=== PATIENT | female | born 1985 | race Caucasian/White ===

== ENCOUNTER 2022-08-07 08:02 | Day surgery (SDC) | payer BC, SELFPAY ==
[2022-08-07] VITALS (9 sets, daily range): BP systolic 96–120; BP diastolic 46–77; PULSE 49–77; RESP 10–18; TEMP 36.6–36.9; O2SAT 99–100
--- NOTE | ~2022-08-07 | CT_ITS ---
EXAMINATION: CT abdomen pelvis w con DATE: 08/07/2022 09:51 INDICATION: Umbilical and right lower quadrant abdominal pain. TECHNIQUE: Computed tomography (CT) of the abdomen and pelvis was performed with 100 mL Omnipaque 350 intravenous contrast. Automated exposure control and iterative reconstruction technique were employe d. The dose-length product was 592.92 mGy-cm. COMPARISON: None. FINDINGS: The visualized portions of the lung bases are clear without pneumonia or pleural effusion. The heart size is normal. No pericardial effusion. The liver, gallbladder, spleen, pancreas, adrenal glands are normal. There is a 4 mm cyst in right kidney. Left kidney is normal. There is an appendico lith in the appendix, which is fluid-filled and dilated to 10 mm. There are no pathologically enlarge d lymph nodes. There is no free intraperitoneal fluid. There is mild lumbar spondylosis. IMPRESSION: 1. Acute appendicitis. Reviewed, dictated and finalized at location A. L RECLAMATION KETTLE TENDER IMPRESSION: 1. Acute appendicitis.
--- NOTE | 2022-08-07 08:35 | ED.GENADULT ---
HPI - General Adult General Chief complaint: Abdominal Pain Stated complaint: abd pain/nausea/vomiting Time Seen by Provider: 08/07/22 08:25 History of Present Illness HPI narrative: This is a 37-year-old female presenting ED with a chief complaint of abdominal pain. The patient says that she was woken from sleep at 5:30 a.m. with a sharp pain near her belly button that radiates to her back. It is burning, 10 out 10 intensity and constant. She has never had pain like this before there are no exacerbating relieving factors. It is associated with nausea vomiting and chills. She denies diarrhea, history of kidney stones. Patient still has her appendix. Last menstrual period was end of June. Related Data Allergies Allergy/AdvReac Type Severity Reaction Status Date / Time No Known Allergies Allergy Verified 08/07/22 08:18 Review of Systems Review of Systems: CONSTITUTIONAL: Denies night sweats. EYES: No eye pain ENT: Denies rhinorrhea CARDIOVASCULAR: Denies palpitations RESPIRATORY: Denies hemoptysis GASTROINTESTINAL: Denies hematemesis GENITOURINARY: Denies hematuria. SKIN: Denies rash MUSCULOSKELETAL: Denies myalgia. NEUROLOGIC: Denies weakness. PSYCHIATRIC: Denies delusions PMFSH Past Medical History Medical History (Updated 08/07/22 @ 10:30 by Jaron Evans MD) Healthy female Social History Social History (Updated 08/07/22 @ 08:37 by Jaron Evans MD) Social History: Patient drinks alcohol occasionally and uses marijuana occasionally, denies tobacco use. Exam Narrative: APPEARANCE: Patient is uncomfortable. Her is at bedside. Head: atraumatic. EYES: EOMI, NOSE: Atraumatic NECK: Trachea midline RESPIRATORY: No increased rate of breathing CARDIOVASCULAR: RRR, ABDOMINAL: Tenderness to palpation in the lower right and lower left quadrants, worse on the right than left. No guarding or rebound. No CVA tenderness. MUSCULOSKELETAl: No obvious deformities NEURO: Alert. Moving 4/4 extremities SKIN:: Warm, dry. Normal color PSYCHIATRIC: Normal affect Course Vital Signs Vital signs: Vital Signs Temperature 97.8 F 08/07/22 08:15 Pulse Rate 77 08/07/22 08:15 Respiratory Rate 18 08/07/22 08:15 Blood Pressure 112/46 L 08/07/22 08:15 Pulse Oximetry 100 08/07/22 08:15 Oxygen Delivery Room Air 08/07/22 08:15 Temperature 97.8 F 08/07/22 08:15 Pulse Rate 77 08/07/22 08:15 Respiratory Rate 18 08/07/22 08:15 Blood Pressure 112/46 L 08/07/22 08:15 Pulse Oximetry 100 08/07/22 08:15 Oxygen Delivery Room Air 08/07/22 08:15 Medical Decision Making MDM Narrative Medical decision making narrative: This is a 37-year-old female presenting ED with chief complaint abdominal pain. Abdominal pain in a female of childbearing age has a broad differential including ectopic , ovarian torsion, kidney stone, appendicitis among others. Patient given 2 L of fluid, Dilaudid/zofran for sxs control., lab work and CT abdomen pelvis have been ordered. Lab work showed a white blood cell count 12.9. CT abdomen pelvis showed acute appendicitis. patient will be started on Zosyn. Surgery consulted. Patient will be taken to the OR. Vital Signs Vital Signs: Vital Signs Temperature 97.8 F 08/07/22 08:15 Pulse Rate 77 08/07/22 08:15 Respiratory Rate 18 08/07/22 08:15 Blood Pressure 112/46 L 08/07/22 08:15 Pulse Oximetry 100 08/07/22 08:15 Oxygen Delivery Room Air 08/07/22 08:15 Temperature 97.8 F 08/07/22 08:15 Pulse Rate 77 08/07/22 08:15 Respiratory Rate 18 08/07/22 08:15 Blood Pressure 112/46 L 08/07/22 08:15 Pulse Oximetry 100 08/07/22 08:15 Oxygen Delivery Room Air 08/07/22 08:15 Lab Data 08/07/22 08:31 08/07/22 08:31 Labs: Lab Results 08/07/22 08/07/22 08/07/22 Range/Units 08:31 08:31 08:45 WBC 14.1 H 12.9 H (4.5-10.0) K/mm3 RBC 4.74
[2022-08-07 08:36] LABS: Basophils Absolute Auto 0.1 K/mm3 (0.0-0.1); Basophils Percent Auto 0.4 % (0.2-1.2); Eosinophils Absolute Auto 0.1 K/mm3 (0-0.3); Eosinophils Percent Auto 0.4 % (0-4.4); Hemoglobin 14.4 g/dL (12.0-15.0); Immature Granulocyte Absolute 0.06 K/mm3 (0.00-0.031); Immature Granulocyte Percent A 0.4 % (0-0.5); Lymphocytes Absolute Auto 1.46 K/mm3 (0.9-3.2); Lymphocytes Percent Auto 10.4 % (18.3-44.2); Mean Corpuscular HGB Conc 34.3 g/dl (32-36); Mean Corpuscular Hemoglobin 30.4 pg (26-34); Mean Corpuscular Volume 88.6 fl (80-100); Mean Platelet Volume 11.6 fl (7.4-10.4); Monocytes Absolute Auto 0.8 K/mm3 (0.1-0.6); Monocytes Percent Auto 5.3 % (2.6-8.5); Neutrophils Absolute Auto 11.7 K/mm3 (1.3-6.7); Neutrophils Percent Auto 83.1 % (45.5-73.1); Platelet Count Result 165 k/mm3 (150-375); Red Blood Count 4.74 M/mm3 (4.2-5.4); Red Cell Distribution Width 12.5 % (11.5-14.5); White Blood Count 14.1 K/mm3 (4.5-10.0)
[2022-08-07 08:47] LABS: Alanine Aminotransferase 14 U/L (6-35); Albumin Level 4.7 g/dL (3.5-5.1); Alkaline Phosphatase 66 U/L (38-126); Anion Gap 8 mmol/L (8-16); Aspartate Amino Transferase 25 U/L (14-36); Bilirubin,Total 0.8 mg/dL (0.2-1.3); Blood Urea Nitrogen 12 mg/dL (7-17); Calcium 9.4 mg/dL (8.4-10.2); Carbon Dioxide 27 mmol/L (22-30); Chloride 104 mmol/L (98-107); Estimated CRCL calculation 105 ml/min; Estimated Glomerular Filt Rate > 60; Glucose 118 mg/dL (65-110); Lipase 28 U/L (23-300); Potassium 3.7 mmol/L (3.4-5.0); Sodium 139 mmol/L (137-145)
[2022-08-07] MEDS: SODIUM CHLORIDE 0.9% IV 2,000 ML 999 ML IV CONT (08:48)
[2022-08-07] MEDS: HYDROmorphone HCL INJ (*CRX) 1 MG/ML SYR IV PUSH (08:48)
[2022-08-07] MEDS: ONDANSETRON INJ 4 MG/2 ML VIAL 8 MG IV PUSH (08:49)
[2022-08-07 08:56] LABS: Basophils Absolute Auto 0.1 K/mm3 (0.0-0.1); Basophils Percent Auto 0.4 % (0.2-1.2); Eosinophils Absolute Auto 0.1 K/mm3 (0-0.3); Eosinophils Percent Auto 0.5 % (0-4.4); Hematocrit 41.1 % (37.0-47.0); Immature Granulocyte Absolute 0.05 K/mm3 (0.00-0.031); Immature Granulocyte Percent A 0.4 % (0-0.5); Lymphocytes Percent Auto 10.9 % (18.3-44.2); Mean Corpuscular HGB Conc 34.1 g/dl (32-36); Mean Corpuscular Hemoglobin 30.2 pg (26-34); Mean Corpuscular Volume 88.6 fl (80-100); Mean Platelet Volume 11.3 fl (7.4-10.4); Monocytes Absolute Auto 0.7 K/mm3 (0.1-0.6); Monocytes Percent Auto 5.1 % (2.6-8.5); Neutrophils Absolute Auto 10.7 K/mm3 (1.3-6.7); Neutrophils Percent Auto 82.7 % (45.5-73.1); Platelet Count Result 166 k/mm3 (150-375); Red Blood Count 4.64 M/mm3 (4.2-5.4); Red Cell Distribution Width 12.6 % (11.5-14.5); White Blood Count 12.9 K/mm3 (4.5-10.0)
[2022-08-07 09:10] LABS: Prothrombin Time 13.1 Seconds (11.1-14.7)
[2022-08-07 09:11] LABS: Alanine Aminotransferase 13 U/L (6-35); Albumin Level 4.7 g/dL (3.5-5.1); Alkaline Phosphatase 63 U/L (38-126); Anion Gap 7 mmol/L (8-16); Aspartate Amino Transferase 21 U/L (14-36); Bilirubin,Total 0.8 mg/dL (0.2-1.3); Blood Urea Nitrogen 12 mg/dL (7-17); Calcium 9.3 mg/dL (8.4-10.2); Carbon Dioxide 26 mmol/L (22-30); Chloride 101 mmol/L (98-107); Estimated CRCL calculation 105 ml/min; Estimated Glomerular Filt Rate > 60; Glucose 119 mg/dL (65-110); Lipase 26 U/L (23-300); Magnesium 1.9 mg/dL (1.6-2.3); Partial Thromboplastin Time 28.4 SECONDS (22.3-36.8); Potassium 3.9 mmol/L (3.4-5.0); Sodium 134 mmol/L (137-145)
[2022-08-07 09:13] LABS: Glucose Point of Care 111 mg/dl (65-105)
[2022-08-07 09:22] LABS: Add Urine Microscopic? YES; Appearance Urine Clear (Clear); Bilirubin Urine Negative (Negative); Blood Urine Negative (Negative); Color Urine Yellow (Yellow); Glucose Urine UA Negative (Negative); Ketones Urine Negative (Negative); Leukocyte Esterase Ur Trace LEU/UL (Negative); Nitrate Urine Positive (Negative); Protein Urine 1+ mg/dL (Negative); Urobilinogen Urine 0.2 mg/dL (<2.0); pH Urine >=9.0 (5.0-9.0)
[2022-08-07 09:27] LABS: Bacteria Urine Trace /hpf; Mucus Urine Rare /lpf; RBC Urine 0-2 /hpf (0-2); Squamous Epithelial Cell Urine Many /hpf (Few); WBC Urine 0-3 /hpf
--- NOTE | 2022-08-07 10:30 | PM.SD2 ---
Same Day Admit/Disch: HPI History of Present Illness Chief complaint: Appendicitis Narrative: Caridad Rahman is a 37 year old female who awakened about the 530 this morning with sharp pain in the umbilical area. This was a burning pain and subsequently moved to the right lower quadrant. She came to the emergency room. She was noted to have right lower quadrant tenderness. [place] [address]. CT scan of the abdomen pelvis shows appendicitis with appendicoliths. She is taken to surgery now as an outpatient for laparoscopic appendectomy for acute appendicitis. She is otherwise healthy. [facility] Past Medical History Medical History Healthy female Social History Social History Social History: Patient drinks alcohol occasionally and uses marijuana occasionally, denies tobacco use. Same Day Admit/Disch: Med Pre-admit Medications Home Medications Medication Instructions Recorded Confirmed Type hydrocodone 5 mg-acetaminophen 325 1 - 2 tablet PO Q6H PRN pain #7 08/07/22 Rx mg tablet tabs ketorolac 10 mg tablet 10 mg PO Q6H 4 days #16 tabs 08/07/22 Rx Exam Const: General: cooperative, healthy appearing, comfortable, no acute distress, alert, awake and thin HENMT: Head: normocephalic and atraumatic Mouth: Yes Normal oral and palatal mucosa present Eyes: Conjunctivae: conjunctivae normal Pupils: Equal, round and reactive pupils present EOM: EOMs intact bilaterally Neck: Neck: normal visual inspection, no lymphadenopathy and nontender Resp: Effort & Inspection: normal respiratory effort Auscultation: clear to auscultation bilaterally Cardio: Rate: regular rate Rhythm: regular rhythm Heart sounds: no gallops, no murmurs and no rubs GI: Inspection: normal to inspection, non-distended, scaphoid and no scars GI Palp: Yes Soft to palpation, Yes Tenderness to palpation present (GI) ( right lower quadrant with guarding), Yes Guarding due to palpation present (GI), No Hepatomegaly present, No Splenomegaly present, No Hernia present and No Palpable mass present Auscultation: normal bowel sounds Skin: Lesions: no lesions Rashes: no rashes Neuro: General: no focal motor deficits and CN's II-XI intact bilaterally Cranial nerves: Yes Equal, round and reactive pupils present, Yes Bilaterally intact EOM present, Yes facial symmetry and Yes Midline tongue present Speech: normal speech Motor exam (neuro): 5/5 motor strength present throughout and Motor abnormalities not present Extrem: General: no clubbing, cyanosis or edema and edema Psych: Affect: normal affect Thought process: Normal thought process present Insight: Good insight present (Psych) DS: Data Data Completed and Pending Labs on day of discharge: Labs from last 24 hours 08/07/22 08/07/22 08/07/22 09:14 09:00 08:45 WBC RBC Hgb Hct MCV MCH MCHC RDW Plt Count MPV Immature Gran % (Auto) Neut % (Auto) Lymph % (Auto) [place] % (Auto) Eos % (Auto) Baso % (Auto) Lymph # (Auto) [place] # (Auto) Eos # (Auto) Baso # (Auto) Abs Immat Gran (auto) Absolute Neuts (auto) Absolute Nucleated RBC Nucleated RBC % PT INR APTT Sodium Potassium Chloride Carbon Dioxide Anion Gap BUN Creatinine Estim Creat Clear Calc Estimated GFR Glucose POC Capillary Glucose 111 H Calcium Magnesium 1.9 Total Bilirubin AST ALT Alkaline Phosphatase Total Protein Albumin Lipase Urine Color Yellow Urine Appearance Clear Urine pH >=9.0 H Ur Specific [place] 1.010 Urine Protein 1+ H Urine Glucose (UA) Negative Urine Ketones Negative Ur Blood (Man) Negative Urine Nitrate Positive H Urine Bilirubin Negative Urine Urobilinogen 0.2 Leukocyte Esterase Rfl Trace H Urin
--- NOTE | 2022-08-07 10:49 | WPDANESEFPP ---
Anes - Eval Final PreProcedure Day of Procedure 08/07/22 10:49 Heart: regular rate and rhythm Lungs: clear to auscultation and normal air movement Airway: Mallampati scale class 1 Neurological: alert and oriented Last oral intake: >/= 8 hours ASA classification: I Emergent: yes Anesthetic plan: proceed Anesthesia type and monitoring: general and standard monitoring Results Review: All pre-operative results and documents have been reviewed as part of the pre-operative evaluation. Informed Consent: The patient's anesthetic plan and its attendant risks and benefits were discussed with the patient/family/POA. Questions were solicited and answers provided to the satisfaction of the patient/family/POA.
--- NOTE | 2022-08-07 11:06 | WPDANESEPPF ---
Anes - Initial Pre Proc Eval Procedure: Operation Date: 08/07/22 11:30 Proposed Procedures p Laparoscopic Appendectomy - Keith Rodríguez MD Date/Time: 08/07/22 11:06 Surgeon: Keith Rodríguez MD Pre Op Diagnosis: Appendicitis Patient Data Age: 37 Gender: F Height: 1.78 m Weight: 77.2 kg Last Vital Signs Temp 36.6 C 08/07/22 08:15 Pulse 64 08/07/22 10:27 Resp 17 08/07/22 10:27 BP 120/56 L 08/07/22 10:27 Pulse Ox 100 08/07/22 10:27 O2 Del Method Room Air 08/07/22 08:15 Allergies Allergy/AdvReac Type Severity Reaction Status Date / Time No Known Allergies Allergy Verified 08/07/22 08:18 Laboratory Tests 08/07/22 08/07/22 08/07/22 08:31 08:31 08:45 WBC 14.1 K/mm3 H K/mm3 12.9 K/mm3 H K/mm3 (4.5-10.0) (4.5-10.0) RBC 4.74 M/mm3 M/mm3 4.64 M/mm3 M/mm3 (4.2-5.4) (4.2-5.4) Hgb 14.4 g/dL g/dL 14.0 g/dL g/dL (12.0-15.0) (12.0-15.0) Hct 42.0 % % 41.1 % % (37.0-47.0) (37.0-47.0) MCV 88.6 fl fl 88.6 fl fl (80-100) (80-100) MCH 30.4 pg pg 30.2 pg pg (26-34) (26-34) MCHC 34.3 g/dl g/dl 34.1 g/dl g/dl (32-36) (32-36) RDW 12.5 % % 12.6 % % (11.5-14.5) (11.5-14.5) Plt Count 165 k/mm3 k/mm3 166 k/mm3 k/mm3 (150-375) (150-375) MPV 11.6 fl H fl 11.3 fl H fl (7.4-10.4) (7.4-10.4) Immature Gran % (Auto) 0.4 % % 0.4 % % (0-0.5) (0-0.5) Neut % (Auto) 83.1 % H % 82.7 % H % (45.5-73.1) (45.5-73.1) Lymph % (Auto) 10.4 % L % 10.9 % L % (18.3-44.2) (18.3-44.2) [place] % (Auto) 5.3 % % 5.1 % % (2.6-8.5) (2.6-8.5) Eos % (Auto) 0.4 % % 0.5 % % (0-4.4) (0-4.4) Baso % (Auto) 0.4 % % 0.4 % % (0.2-1.2) (0.2-1.2) Lymph # (Auto) 1.46 K/mm3 K/mm3 1.40 K/mm3 K/mm3 (0.9-3.2) (0.9-3.2) [place] # (Auto) 0.8 K/mm3 H K/mm3 0.7 K/mm3 H K/mm3 (0.1-0.6) (0.1-0.6) Eos # (Auto) 0.1 K/mm3 K/mm3 0.1 K/mm3 K/mm3 (0-0.3) (0-0.3) Baso # (Auto) 0.1 K/mm3 K/mm3 0.1 K/mm3 K/mm3 (0.0-0.1) (0.0-0.1) Abs Immat Gran (auto) 0.06 K/mm3 H K/mm3 0.05 K/mm3 H K/mm3 (0.00-0.031) (0.00-0.031) Absolute Neuts (auto) 11.7 K/mm3 H K/mm3 10.7 K/mm3 H K/mm3 (1.3-6.7) (1.3-6.7) Absolute Nucleated RBC 0.0 K/mm3 K/mm3 0.0 K/mm3 K/mm3 (0.0-0.012) (0.0-0.012) Nucleated RBC % 0.0 % % 0.0 % % (0.0-0.2) (0.0-0.2) PT INR APTT Sodium 139 mmol/L mmol/L (137-145) Potassium 3.7 mmol/L mmol/L (3.4-5.0) Chloride 104 mmol/L mmol/L (98-107) Carbon Dioxide 27 mmol/L mmol/L (22-30) Anion Gap 8 mmol/L mmol/L (8-16) BUN 12 mg/dL mg/dL (7-17) Creatinine 0.70 mg/dL mg/dL (0.7-1.0) Estim Creat Clear Calc 105 ml/min ml/min Estimated GFR > 60 (59 - ) Glucose 118 mg/dL H mg/dL (65-110) POC Capillary Glucose Calcium 9.4 mg/dL mg/dL (8.4-10.2) Magnesium Total Bilirubin 0.8 mg/dL mg/dL (0.2-1.3) AST 25 U/L U/L (14-36) ALT 14 U/L U/L (6-35) Alkaline Phosphatase 66 U/L U/L (38-126) Total Protein 8.0 g/dL g/dL (6.3-8.2) Albumin 4.7 g/dL g/dL (3.5-5.1) Lipase 28 U/L U/L (23-300) Urine Color Urine Appearance Urine pH Ur Specific [place] Urine Protein Urine Glucose (UA) Urine Ketones Ur Blood (Man) Urine Nitrate Urine Bilirubin Urine Urobilinogen Leukocyte Esterase Rfl Urine RBC Urine WBC Ur Squamous Epith Cells Urine Bacteria Urine Mucus 08/07/22 08/07/22 08/07/22 08:45 08:45 08:45 WBC RBC Hgb Hct
--- NOTE | 2022-08-07 11:14 | WPDHPUPDATE1 ---
History and Physical Update Update Date/Time: 08/07/22 11:14 History and Physical has been reviewed, including an updated exam of the patient. There are NO changes in the patient's condition. Risks, benefits, and alternatives have been discussed and questions answered. Patient agrees to proceed with procedure.
--- NOTE | 2022-08-07 11:34 | P.OP_ITS ---
Procedure Note - Detailed Date of Procedure 08/07/22 Pre-op Diagnosis Appendicitis Post-op Diagnosis Same Procedure Performed Laparoscopic appendectomy Surgeon Keith Rodríguez MD Agricultural Sciences Professor Fatimah SMITH Anesthesia General and Local (0.5% Marcaine with epinephrine) Indications Patient had umbilical pain that moved to the right lower quadrant. She had peritoneal signs and leukocytosis. CT scan showed acute appendicitis. She is taken to surgery now for laparoscopic appendectomy Findings Acute non perforated appendicitis Description of Procedure Patient was taken to surgery and induced into general anesthesia. The abdomen is prepped and draped. Trocars were placed in the usual fashion using [employer] optical trocars and a 5 mm camera. Patient was placed in Trendelenburg with the right-side elevated. Appendix was located and dissected free from inflammatory adhesions. Dissection was carried out in the mesoappendix. The appendiceal artery was thoroughly cauterized and divided. The appendix was further dissected and was skeletonized at its base. Base of the appendix was ligated with a Vicryl endoloop. The appendix was amputated just above the ligature. The mucosa of the appendiceal stump was cauterized. The appendix was placed immediately in an Endo-Catch bag. It was retrieved through the 10 11 left lower quadrant trocar site. We then replaced the trocar and reviewed the areas of dissection and the appendiceal stump. All looked good with no evidence of bleeding or other issues. We evacuated CO2 and removed the trocar sleeves. Skin wounds were closed with subcuticular 4-0 Monocryl skin suture. The wounds were dressed with Exofin surgical adhesive. Patient was awakened and taken to recovery in good condition. Sponge needle counts were correct x2. Estimated Blood Loss -5 Packing No Pathology Yes (Appendix) Complications No immediate complications Condition Stable Disposition PACU [facility] Billing Surgery - Charge Forward: Surgery Billing (Laparoscopic appendectomy)
[2022-08-07] MEDS: BUPIVACAINE/EPINEPHRINE 0.5% 30 ML VIAL INFILTRATE (12:01)
[2022-08-07] MEDS: LACTATED RINGERS 1,000 ML 30 ML IV CONT (12:10)
[2022-08-07] MEDS: HYDROmorphone HCL INJ (*CRX) 1 MG/ML SYR 0.5 MG IV PUSH ×2 (12:17→12:24)
[2022-08-07] MEDS: SCOPOLAMINE 1.5 MG PATCH TRANSDERM (12:19)
[2022-08-07] MEDS: oxyCODONE HCL (*CRX) 5 MG TAB IR PO (13:15)
== END 2022-08-07 13:50 | disposition home or self-care (01) ==
LOC: ANHED 10:30 → ANHSURGERY 10:33
PROVIDERS: Emergency Provider Emergency Medicine; Visit Provider Surgery
PROC: 0DTJ4ZZ Resection of Appendix, Percutaneous Endoscopic Approach (ICD-10-PCS; CPT 44970; principal; 2022-08-07 11:30)
DX: K35.80 Unspecified acute appendicitis (principal)
CPT/HCPCS: 44970; 36415; 74177; 80053; 81001; 81025; 82948; 83690; 83735; 85025; 85610; 85730; 88304; A9270; J0131; J1100; J1170; J2250; J2405; J2543; J2704; J2710; J3010; J7030; J7120; Q9967

== ENCOUNTER 2023-08-01 09:09 | Emergency (ER) | payer BC, SELFPAY ==
[2023-08-01] VITALS (12 sets, daily range): BP systolic 98–111; BP diastolic 63–85; PULSE 75–113; RESP 13–24; TEMP 36.8; O2SAT 96–100
--- NOTE | ~2023-08-01 | XR_ITS ---
XR chest 2V DATE: 08/01/2023 10:23 INDICATION: Nausea, vomiting TECHNIQUE: PA and lateral views COMPARISON: None FINDINGS: Normal heart size. No hilar or mediastinal enlargement. No pulmonary infiltrate or consolidation, pleural effusion or pulmonary vascular congestion or pneumo thorax. Included skeletal structures are unremarkable. IMPRESSION: No active cardiopulmonary disease Reviewed, dictated and finalized at location A. ER PLANER
--- NOTE | ~2023-08-01 | CT_ITS ---
EXAMINATION: CT abdomen pelvis w con DATE: 08/01/2023 11:31 INDICATION: Generalized abdominal pain. Nausea, vomiting, diarrhea. TECHNIQUE: Computed tomography (CT) of the abdomen and pelvis was performed with 100 CC Omnipaque 350 intravenous contrast. Automated exposure control and iterative reconstruction technique were employe d. Exam dose: 649.15 mGy-cm total exam DLP. COMPARISON: 08/07/2022 CT abdomen pelvis FINDINGS: The lung bases are clear. Normal heart size. No pericardial or pleural effusion. The liver, gallbladder, bile ducts, spleen, pancreas and pancreatic duct. Normal morphology of the adrenal glands. No renal mass lesion or urinary tract calculus or hydroureteronephrosis is detected. Mild diffuse thickening of the urinary bladder wall; cystitis is not excluded. Clinical correlation i s advised. There is some thickening of the wall of the colon and fluid as well as fluid levels of the colon, sug gesting colitis, which may be infectious, or inflammatory. There is no evidence of vascular compromis e of the mesenteric arteries or diminished enhancement of the colon wall and suggested he ischemic et iology for the findings. There is no evidence of appendix. No bowel obstruction or intraperitoneal free air. Small fat-containing umbilical hernia. No intraperitoneal or retroperitoneal or pelvic mass lesion or adenopathy or ascites. Some fluid in the endometrial cavity of uterus. The uterus and adnexal areas otherwise are unremarkab le. IMPRESSION: Thickening of the wall of the colon and fluid within the colon, suggesting infectious or inflammatory colitis Status post appendectomy Mild diffuse thickening of the urinary bladder wall; cystitis is not excluded. Recommend clinical cor relation Reviewed, dictated and finalized at Location [facility]. Reviewed, dictated and finalized at location A. RESSOR MECHANIC IMPRESSION: Thickening of the wall of the colon and fluid within the colon, ac ggesting infectious or inflammatory colitis Status post appendectomy Mild diffuse thickening of the urinary bladder wall; cystitis is not excluded. Recommend clinical correlation
--- NOTE | 2023-08-01 09:51 | ECG_ITS ---
Measurements Intervals [place] Rate: 70 P: -17 [place]: 134 QRS: 96 QRSD: 94 T: 14 QT: 407 QTc: 441 Interpretive Statements SINUS RHYTHM BORDERLINE RIGHT AXIS DEVIATION [QRS AXIS > 90] NONSPECIFIC ST & T-WAVE ABNORMALITY NO PREVIOUS ECG AVAILABLE FOR COMPARISON Electronically Signed On 08-01-2023 13:54:09 INSTRUMENTATION AND CONTROLS DESIGNER by Ashley Espinal M.D.
--- NOTE | 2023-08-01 09:52 | ED.NAVMDI ---
HPI - Nausea/Vomiting/Diarrhea General Chief complaint: Nausea/Vomiting/Diarrhea Stated complaint: n/v/d Time Seen by Provider: 08/01/23 09:27 History of Present Illness HPI Narrative: 38-year-old female who is s/p appendectomy reports for evaluation for nausea, vomiting, diarrhea and generalized abdominal pain. Patient states 3 days ago she began having multiple episodes of watery diarrhea per day which has persisted to today. States she developed associated nausea and vomiting yesterday. She is also reporting a cough intermittently that is productive for the past 2 weeks. States she had a fever of 102 yesterday. LMP approximately 1 month ago. She denies blood or mucus in her stool, otalgia, sore throat, dysuria or hematuria. Denies recent travel or antibiotic use. Related Data Allergies Allergy/AdvReac Type Severity Reaction Status Date / Time No Known Allergies Allergy Verified 08/01/23 09:49 Review of Systems Review of Systems: CONSTITUTIONAL: Denies fever, chills, or sweats. EYES: Denies visual changes, redness, or discharge. ENT: Denies rhinorrhea, congestion, sore throat, or otalgia. CARDIOVASCULAR: Denies chest pain, palpitations, or edema. RESPIRATORY: See HPI GASTROINTESTINAL: See HPI GENITOURINARY: Denies dysuria or hematuria. SKIN: Denies rash or itching. MUSCULOSKELETAL: Denies back pain, joint pain, or myalgia. NEUROLOGIC: Denies headache, numbness, or weakness. PSYCHIATRIC: Denies anxiety or depression. [facility] Past Medical History Medical History Healthy female Surgical History Surgical History S/P laparoscopic appendectomy 08/07/22 Social History Social History Social History: Patient drinks alcohol occasionally and uses marijuana occasionally, denies tobacco use. Smoking status: Never smoker Exam Narrative: GENERAL: Ill-appearing, dry heaving on exam HEAD: Normocephalic, atraumatic. EYES: PERRLA and EOMI. ENT: Nares clear, no rhinorrhea or epistaxis. Mucous membranes moist. Posterior pharynx without erythema or edema. No tonsillar hypertrophy. Uvula midline. Bilateral TMs are yu non-bulging. Normal canals. NECK: Supple. CHEST: Clear to auscultation. No respiratory distress. HEART: Regular rate and rhythm. No murmur heard. Normal peripheral pulses. ABDOMEN: Normoactive bowel sounds. Generalized abdominal tenderness without rebound, guarding or rigidity. No CVA tenderness. EXTREMITIES: Normal range of motion. No edema. SKIN: Warm, dry, no rash. NEURO: No focal deficits. Alert and oriented x3 Course Vital Signs Vital signs: Vital Signs Temperature 98.3 F 08/01/23 09:15 Pulse Rate 113 H 08/01/23 09:15 Respiratory Rate 20 08/01/23 09:15 Blood Pressure 100/73 08/01/23 09:15 Pulse Oximetry 96 08/01/23 09:15 Oxygen Delivery Room Air 08/01/23 09:15 Temperature 98.3 F 08/01/23 09:15 Pulse Rate 92 08/01/23 15:15 Respiratory Rate 24 H 08/01/23 15:15 Blood Pressure 101/65 08/01/23 14:16 Pulse Oximetry 98 08/01/23 15:15 Oxygen Delivery Room Air 08/01/23 09:15 MDM - Nausea/Vomiting/Diarrhea MDM Narrative Medical decision making narrative: 38-year-old female reports for evaluation for nausea, vomiting and diarrhea. See HPI for further history. Vitals significant for tachycardia 113, otherwise unremarkable. She is afebrile. Exam is significant for the above. Lab significant for leukocytosis of 11.6, platelets of 106. Platelets a year ago were 166. Chemistries significant for sodium of 134, potassium of 3. Potassium orally repleted. Repeat BMP shows a corrected potassium of 3.6. Lactic acid is normal 1.2. LFTs unremarkable. Urinalysis with 3+ ketones, no UTI. COVID and RSV are negative. Flu B is positive. EKG shows nonspecific ST and T wave abnormali
[2023-08-01 09:56] LABS: Basophils Percent Auto 0.2 % (0.2-1.2); Hematocrit 42.5 % (37.0-47.0); Hemoglobin 14.7 g/dL (12.0-15.0); Immature Granulocyte Absolute 0.04 K/mm3 (0.00-0.031); Immature Granulocyte Percent A 0.3 % (0-0.5); Immature Platelet Fraction Pct 9.9 % (0.9-11.2); Lymphocytes Absolute Auto 1.13 K/mm3 (0.9-3.2); Lymphocytes Percent Auto 9.7 % (18.3-44.2); Mean Corpuscular HGB Conc 34.6 g/dl (32-36); Mean Corpuscular Hemoglobin 29.9 pg (26-34); Mean Corpuscular Volume 86.4 fl (80-100); Mean Platelet Volume 12.1 fl (7.4-10.4); Monocytes Absolute Auto 0.4 K/mm3 (0.1-0.6); Monocytes Percent Auto 3.2 % (2.6-8.5); Neutrophils Absolute Auto 10.1 K/mm3 (1.3-6.7); Neutrophils Percent Auto 86.6 % (45.5-73.1); Platelet Count Result 106 k/mm3 (150-375); Red Blood Count 4.92 M/mm3 (4.2-5.4); Red Cell Distribution Width 12.2 % (11.5-14.5); White Blood Count 11.6 K/mm3 (4.5-10.0)
[2023-08-01] MEDS: SODIUM CHLORIDE 0.9% IV 1,000 ML 999 ML IV CONT ×3 (09:56→14:24)
[2023-08-01] MEDS: ONDANSETRON INJ 4 MG/2 ML VIAL IV PUSH ×2 (09:57→10:56)
[2023-08-01 10:14] LABS: Alanine Aminotransferase 12 U/L (6-35); Albumin Level 4.5 g/dL (3.5-5.1); Alkaline Phosphatase 64 U/L (38-126); Anion Gap 13 mmol/L (8-16); Aspartate Amino Transferase 23 U/L (14-36); Bilirubin,Total 0.8 mg/dL (0.2-1.3); Blood Urea Nitrogen 13 mg/dL (7-17); Calcium 9.6 mg/dL (8.4-10.2); Carbon Dioxide 23 mmol/L (22-30); Chloride 98 mmol/L (98-107); Estimated CRCL calculation 92 ml/min; Estimated Glomerular Filt Rate > 60; Glucose 131 mg/dL (65-110); Lipase 42 U/L (23-300); Sodium 134 mmol/L (137-145)
[2023-08-01 10:23] LABS: Influenza A QL RT-PCR Negative (Negative); Influenza B QL RT-PCR Positive (Negative); RSV RNA, RT-PCR Negative (Negative); SARS-CoV-2 RNA PCR Negative (Negative)
[2023-08-01 10:24] LABS: Lactic Acid Reflex 1.2 mmol/L (0.7-2.0)
[2023-08-01] MEDS: POTASSIUM CHLORIDE 20 MEQ PACKET (FOR LIQUID) 40 MEQ PO (10:40)
[2023-08-01 11:19] LABS: Appearance Urine Clear (Clear); Bilirubin Urine Negative (Negative); Blood Urine Negative (Negative); Color Urine Yellow (Yellow); Glucose Urine UA Negative (Negative); Ketones Urine 3+ mg/dL (Negative); Leukocyte Esterase Ur Negative LEU/UL (Negative); Nitrate Urine Negative (Negative); Protein Urine Negative (Negative); Specific Grav Ur 1.013 (1.001-1.035); Urobilinogen Urine 0.2 mg/dL (<2.0)
[2023-08-01 11:35] LABS: Add Urine Microscopic? NO
--- NOTE | 2023-08-01 12:24 | ECG_ITS ---
Measurements Intervals [place] Rate: 75 P: -13 [place]: 112 QRS: 91 QRSD: 88 T: 16 QT: 390 QTc: 436 Interpretive Statements SINUS RHYTHM WITH SHORT [place] INTERVAL BORDERLINE RIGHT AXIS DEVIATION [QRS AXIS > 90] NONSPECIFIC ST & T-WAVE ABNORMALITY COMPARED TO ECG 08/01/2023 10:02:20 NO SIGNIFICANT CHANGES Electronically Signed On 08-01-2023 13:57:15 MANAGER INVENTORY by Ashley Espinal M.D.
[2023-08-01] MEDS: METOCLOPRAMIDE HCL 10 MG TABLET PO (12:34)
[2023-08-01 13:27] LABS: Troponin I < 0.012 ng/mL (0.000-0.034)
[2023-08-01 13:30] LABS: Toxigenic C. Diff NEGATIVE (NEGATIVE)
[2023-08-01 14:17] LABS: Anion Gap 9 mmol/L (8-16); Blood Urea Nitrogen 10 mg/dL (7-17); Calcium 8.6 mg/dL (8.4-10.2); Carbon Dioxide 22 mmol/L (22-30); Chloride 103 mmol/L (98-107); Estimated CRCL calculation 104 ml/min; Estimated Glomerular Filt Rate > 60; Glucose 110 mg/dL (65-110); Potassium 3.6 mmol/L (3.4-5.0); Sodium 134 mmol/L (137-145)
== END 2023-08-01 16:07 | disposition home or self-care (01) ==
PROVIDERS: Emergency Medicine; Emergency Provider Physician Assistant
DX: K52.9 Noninfective gastroenteritis and colitis, unspecified (principal); J10.1 Influenza due to other identified influenza virus with other respiratory manifestations; E87.6 Hypokalemia; D69.6 Thrombocytopenia, unspecified; Z20.822 Contact with and (suspected) exposure to COVID-19
CPT/HCPCS: 36415; 71046; 74177; 80048; 80053; 81003; 81025; 83605; 83690; 84484; 85025; 85055; 87045; 87077; 87186; 87427; 87449; 87493; 87637; 89055; 93005; 96361; 96374; 96376; 99284; A9270; J2405; J7030; Q9967

== ENCOUNTER 2024-12-17 12:35 | Outpatient (CLI) | payer BC, SELFPAY ==
[2024-12-17 13:56] LABS: Basophils Absolute Auto 0.1 K/mm3 (0.0-0.1); Basophils Percent Auto 0.8 % (0.2-1.2); Eosinophils Absolute Auto 0.2 K/mm3 (0-0.3); Eosinophils Percent Auto 3.7 % (0-4.4); Hematocrit 38.8 % (37.0-47.0); Hemoglobin 12.8 g/dL (12.0-15.0); Immature Granulocyte Absolute 0.01 K/mm3 (0.00-0.031); Immature Granulocyte Percent A 0.2 % (0-0.5); Lymphocytes Absolute Auto 2.49 K/mm3 (0.9-3.2); Lymphocytes Percent Auto 38.2 % (18.3-44.2); Mean Corpuscular Hemoglobin 30.2 pg (26-34); Mean Corpuscular Volume 91.5 fl (80-100); Mean Platelet Volume 12.2 fl (7.4-10.4); Monocytes Absolute Auto 0.5 K/mm3 (0.1-0.6); Monocytes Percent Auto 7.1 % (2.6-8.5); Neutrophils Absolute Auto 3.3 K/mm3 (1.3-6.7); Platelet Count Result 157 k/mm3 (150-375); Red Blood Count 4.24 M/mm3 (4.2-5.4); Red Cell Distribution Width 12.7 % (11.5-14.5); White Blood Count 6.5 K/mm3 (4.5-10.0)
[2024-12-17 16:12] LABS: Alanine Aminotransferase 12 U/L (6-35); Albumin Level 4.1 g/dL (3.5-5.1); Alkaline Phosphatase 61 U/L (38-126); Anion Gap 7 mmol/L (4-12); Aspartate Amino Transferase 32 U/L (14-36); Bilirubin,Total 0.6 mg/dL (0.2-1.3); Blood Urea Nitrogen 14 mg/dL (7-17); Calcium 8.9 mg/dL (8.4-10.2); Carbon Dioxide 28 mmol/L (22-30); Chloride 105 mmol/L (98-107); Estimated Glomerular Filt Rate > 60; Glucose 93 mg/dL (65-110); Potassium 3.9 mmol/L (3.4-5.0); Sodium 140 mmol/L (137-145)
== END 2024-12-17 12:36 | disposition home or self-care (01) ==
PROVIDERS: PCP Nurse Practitioner; Visit Provider Nurse Practitioner
DX: Z13.29 Encounter for screening for other suspected endocrine disorder (principal); F41.9 Anxiety disorder, unspecified
CPT/HCPCS: 36415; 80053; 84443; 85025